=== PATIENT | female | born 1950 | race Caucasian/White ===

== ENCOUNTER 2020-11-28 08:03 | Day surgery (SDC) | payer OTHER ==
[~2020-11-28] VITALS: Ht 154.9 cm; Wt 81.6 kg
[~2020-11-28 08:03] MED LIST: ALLO100T PO; ASPI-378 PO; ATOR20TA PO; BUPR200T7 PO; CLOP75TA28 PO; ESCI10TA PO; MONT10TA42 PO; SILD20TA2 PO
[2020-11-28] MEDS ORDERED: fentaNYL CITRATE 100 MCG/2 ML VL ONE (09:52)
[2020-11-28] MEDS ORDERED: MIDAZOLAM HCL 2MG/2ML 2ml VIAL (1mg/ml) ONE (09:52)
[2020-11-28] MEDS ORDERED: ANGIOMAX 250 MG VIAL IV ONE (09:52)
[2020-11-28] MEDS ORDERED: IODIXANOL 320MG/ML 100ML BTL IV ONE (09:53)
[2020-11-28] MEDS ORDERED: SODIUM CHL 0.9% 0 ML ONE (09:53)
[2020-11-28] MEDS ORDERED: LIDOCAINE 2%HCL (LOCAL ANESTH.) INJ 20ML MDV ONE (09:53)
[2020-11-28] MEDS ORDERED: methylPREDNISolone SOD SUCC 125 MG/2 ML VL ONE (09:56)
[2020-11-28] MEDS ORDERED: diphenhdrAMINE HCL 50 MG/1 ML VL ONE (09:57)
[2020-11-28] MEDS ORDERED: FAMOTIDINE (10MG/ML) 2ML VL IV ONE (09:58)
[2020-11-28] MEDS ORDERED: NITROGLYCERIN 0.4MG/DOSE SPRAY 4.9GM ONE (10:10)
[2020-11-28] MEDS ORDERED: amLODIPine BESYLATE 5 MG TAB PO ONE (12:00)
[2020-11-28] MEDS ORDERED: amLODIPine BESYLATE 5 MG TAB ONE (12:03)
== END 2020-11-28 13:28 | disposition home or self-care (01) ==
LOC: CATH 08:03
PROVIDERS: ATTEND Internal Medicine
DX: I70.211 Atherosclerosis of native arteries of extremities with intermittent claudication, right leg (principal); I10 Essential (primary) hypertension; I25.2 Old myocardial infarction; E78.00 Pure hypercholesterolemia, unspecified; E66.01 Morbid (severe) obesity due to excess calories; Z88.5 Allergy status to narcotic agent; Z88.0 Allergy status to penicillin; Z91.041 Radiographic dye allergy status; Z20.822 Contact with and (suspected) exposure to COVID-19; Z79.82 Long term (current) use of aspirin; Z79.899 Other long term (current) drug therapy; Z87.891 Personal history of nicotine dependence; Z88.1 Allergy status to other antibiotic agents
CPT/HCPCS: 36247; 75716; C1760; C1769; C1894; J1200; J1644; J2250; J2930; J3010; J3490; J7030; Q9967; U0003; 99152; 99153

== ENCOUNTER 2020-12-19 14:02 | Emergency (ER) | payer OTHER ==
[~2020-12-19] VITALS: Ht 154.9 cm; Wt 81.2 kg
[~2020-12-19 14:02] MED LIST changes: +MONT-8 PO; -MONT10TA42 PO
[2020-12-19 22:37] VITALS: BP 137/55
== END 2020-12-19 22:48 | disposition home or self-care (01) ==
LOC: ER 14:02 → EDBD 14:02 → ER 22:48
DX: J44.1 Chronic obstructive pulmonary disease with (acute) exacerbation (principal); I11.0 Hypertensive heart disease with heart failure; I50.9 Heart failure, unspecified; Z88.0 Allergy status to penicillin; Z88.2 Allergy status to sulfonamides
CPT/HCPCS: 70450; 73070

== ENCOUNTER 2021-01-23 08:24 | Day surgery (SDC) | payer OTHER ==
[~2021-01-23] VITALS: Ht 156.2 cm; Wt 79.8 kg
[2021-01-23] VITALS (7 sets, daily range): BP systolic 112–138; BP diastolic 49–70
[~2021-01-23 08:24] MED LIST changes: +AMLO-489 PO; -ATOR20TA PO; +ATOR20TA50 PO; +BUME0.5T4 PO; -CLOP75TA28 PO; +METO25TA5 PO
[2021-01-23] MEDS ORDERED: LIDOCAINE 2%HCL (LOCAL ANESTH.) INJ 20ML MDV ONE ×2 (08:59→09:39)
[2021-01-23] MEDS ORDERED: fentaNYL CITRATE 100 MCG/2 ML VL ONE (09:22)
[2021-01-23] MEDS ORDERED: MIDAZOLAM HCL 2MG/2ML 2ml VIAL (1mg/ml) ONE (09:23)
[2021-01-23] MEDS ORDERED: ANGIOMAX 250 MG VIAL IV ONE (09:33)
[2021-01-23] MEDS ORDERED: SODIUM CHL 0.9% 0 ML ONE (09:34)
[2021-01-23] MEDS ORDERED: VERAPAMIL 2.5MG/ML INJ 2ML VIAL IV ONE (09:34)
[2021-01-23] MEDS ORDERED: HEPARIN SODIUM (PORCINE) 5000 UNITS/ML 1ML VIAL ONE (09:34)
[2021-01-23] MEDS ORDERED: diphenhdrAMINE HCL 50 MG/1 ML VL ONE (09:35)
[2021-01-23] MEDS ORDERED: FAMOTIDINE (10MG/ML) 2ML VL IV ONE (09:36)
[2021-01-23] MEDS ORDERED: methylPREDNISolone SOD SUCC 125 MG/2 ML VL ONE (09:46)
== END 2021-01-23 13:24 | disposition home or self-care (01) ==
LOC: CATH 08:24
PROVIDERS: ATTEND Internal Medicine
DX: I27.20 Pulmonary hypertension, unspecified (principal); J44.9 Chronic obstructive pulmonary disease, unspecified; I10 Essential (primary) hypertension; E78.5 Hyperlipidemia, unspecified; I25.2 Old myocardial infarction; I73.9 Peripheral vascular disease, unspecified; Z87.891 Personal history of nicotine dependence; Z82.49 Family history of ischemic heart disease and other diseases of the circulatory system; Z88.0 Allergy status to penicillin; Z88.5 Allergy status to narcotic agent; Z88.2 Allergy status to sulfonamides; Z20.822 Contact with and (suspected) exposure to COVID-19; Z98.890 Other specified postprocedural states; Z79.899 Other long term (current) drug therapy
CPT/HCPCS: 93005; 93460; C1751; C1769; C1887; C1894; J1200; J1644; J2250; J2930; J3010; J3490; U0003; 99152; 99153